=== PATIENT | female | born 1980 | race Caucasian/White ===

== ENCOUNTER 2023-03-13 03:34 | Emergency (ER) | payer SELFPAY ==
[~2023-03-13] VITALS: Ht 152.4 cm; Wt 72.7 kg
[2023-03-13 04:23] LABS: BASO % 0.3 % (0.0-2.0); EOS # 0.6 K/mm3 (0.0-0.7); EOS % 6.5 % (0.0-4.0); GRAN # 4.3 K/mm3 (1.4-6.5); GRAN % 45.2 % (42.2-75.2); HEMATOCRIT 38.8 % (37.0-47.0); HEMOGLOBIN 13.3 g/dl (12.5-16.0); LYMPH # 3.7 K/mm3 (1.2-3.4); LYMPH % 38.6 % (20.0-51.0); MEAN CELL VOLUME 92 fl (80.0-100.0); MEAN CORPUSCULAR HEMOGLOBIN 32 pg (27-31); MEAN CORPUSCULAR HGB CONC 34 g/dl (33.0-37.0); MEAN PLATELET VOLUME 9.8 fl (7.4-10.4); MONO # 0.9 K/mm3 (0.1-0.6); MONO % 9.2 % (1.7-9.3); PLATELET COUNT 278 K/mm3 (130-400); RED BLOOD COUNT 4.22 M/mm3 (4.10-5.30); REDCELL DISTRIBUTION WIDTH-CV 12.6 % (11.5-14.5)
[2023-03-13 04:40] LABS: ALANINE AMINOTRANSFERASE 24 U/L (0-55); ALBUMIN 3.7 gm/dL (3.5-5.0); ALKALINE PHOSPHATASE 97 U/L (40-150); ANION GAP 11 mmol/L (7-16); AST,SGOT 32 U/L (5-34); BLOOD UREA NITROGEN 14 mg/dL (7-19); CALCIUM 9.5 mg/dL (8.4-10.2); CARBON DIOXIDE 23 mmol/L (22-29); CHLORIDE 106 mmol/L (98-107); CREATININE, serum 0.77 mg/dL (0.57-1.11); GLUCOSE 125 mg/dL (70-99); POTASSIUM 3.1 mmol/L (3.5-4.5); SODIUM 140 mmol/L (136-145); TOTAL PROTEIN 7.6 gm/dL (6.2-8.1)
[2023-03-13 04:47] LABS: TROPONIN-I < 0.010 ng/mL (0.00-0.033)
[2023-03-13 04:50] LABS: BILIRUBIN,TOTAL 0.3 mg/dL (0.2-1.2)
[2023-03-13 05:05] LABS: INR 0.9 (0.8-3.0); PROTHROMBIN TIME 10.3 SECONDS (9.7-12.8)
[2023-03-13 09:54] VITALS: BP 100/61; PULSE 67; TEMP 97.5
== END 2023-03-13 10:10 | disposition home or self-care (01) ==
LOC: COL.ER 03:34
PROVIDERS: Internal Medicine
DX: R07.89 Other chest pain (principal)